=== PATIENT | female | born 1945 | race Caucasian/White ===

== ENCOUNTER 2023-07-14 20:48 | Inpatient (IN) | payer MEDICARE ==
[~2023-07-14] VITALS: Ht 160 cm; Wt 61.8 kg
[2023-07-14 21:20] VITALS: BP 100/72
[2023-07-15 00:29] LABS: BILIRUBIN Negative (Negative); BLOOD Negative (Negative); CLARITY Cloudy (Clear); COLOR Dark Yellow (Yellow); GLUCOSE Negative (Negative); KETONE 1+ (Negative); LEUKO ESTERASE Trace (Negative); NITRITE Negative (Negative); SPECIFIC GRAVITY >= 1.030 (1.001-1.030)
[2023-07-15 00:35] LABS: URINE AMPHETAMINES Negative (1000ng/ml); URINE BARBITURATES Negative (200ng/ml); URINE BENZODIAZEPINES Negative (200ng/ml); URINE CANNABINOIDS (THC) Negative (50ng/ml); URINE COCAINE Negative (300ng/ml); URINE METHADONE Negative (300ng/ml); URINE OPIATES Positive (300ng/ml); URINE PHENCYCLIDINE Negative (25ng/ml)
[2023-07-15 00:59] LABS: BACTERIA 3+
[2023-07-15 01:25] LABS: BASO % 0.7 % (0.0-1.0); EOS # 0.4 10*3/uL (0.0-0.4); EOS % 6.1 % (1.0-4.0); HEMATOCRIT 43.1 % (37.0-47.0); LYMPH # 1.9 10*3/uL (1.3-4.4); LYMPH % 31.2 % (27.0-41.0); MEAN CORPUSCULAR HGB 30.5 pg (27.0-31.0); MEAN CORPUSCULAR HGB CONC 31.8 g/dl (33.0-37.0); MEAN PLATELET VOLUME 9.6 fl (9.6-12.3); MONO # 0.5 10*3/uL (0.1-1.0); MONO % 7.9 % (3.0-9.0); NEUT # 3.2 10*3/uL (2.3-7.9); NEUT % 53.8 % (47.0-73.0); PLATELET COUNT AUTOMATED 158 10*3/uL (130-400); RED BLOOD COUNT 4.49 10*6/uL (4.10-5.10); RED CELL DISTRI WIDTH 13.3 % (0-14.5); WHITE BLOOD COUNT 5.9 10*3/uL (4.8-10.8)
[2023-07-15 01:44] LABS: ALKALINE PHOSPHATASE 73 U/L (46-116); BUN 12 mg/dl (9-23); CHLORIDE 109 mmol/L (98-107); POTASSIUM 3.6 mmol/L (3.4-5.1); SGPT/ALT 8 U/L (5-49); TOTAL PROTEIN 7.1 gm/dL (6.0-8.0)
[2023-07-15 01:45] LABS: ETHYL ALCOHOL < 3.0 mg/dl (<3)
[2023-07-15 03:30] VITALS: BP 138/77
[2023-07-15] MEDS ORDERED: BISACODYL10 MG R (03:59)
[2023-07-15] MEDS ORDERED: HYDROCODONE-AC1 EAC1 PO (04:00)
[2023-07-15] MEDS ORDERED: KLONOPIN0.5 MG PO (04:01)
[2023-07-15] MEDS ORDERED: MELATONIN3 MG PO (04:02)
[2023-07-15] MEDS ORDERED: ATIVAN0.5 MG PO (04:02)
[2023-07-15] MEDS ORDERED: MILK OF MA400 MG/53 PO (04:03)
[2023-07-15] MEDS ORDERED: EXELON1 EAC1 T (04:05)
[2023-07-15] MEDS ORDERED: NUED1CAP PO (04:05)
[2023-07-15] MEDS ORDERED: TRIDERM28.4 GM T (04:08)
[2023-07-15] MEDS ORDERED: ACETAMINOPHEN325 M2 PO (04:15)
[2023-07-15] MEDS ORDERED: REXULTI1 MG PO (04:16)
[2023-07-15] MEDS ORDERED: NAMENDA-5 PO (04:16)
[2023-07-15] MEDS ORDERED: ATIVAN1 MG PO (04:17)
[2023-07-15] MEDS ORDERED: STERILE WATER 110 ML IM (04:18)
[2023-07-15] MEDS ORDERED: GEODON20 MG/1 ML IM (04:18)
[2023-07-15] MEDS ORDERED: EXELON1 EAC2 TD (04:21)
[2023-07-15] MEDS ORDERED: VITAMIN D31250 MC1 PO (04:27)
[2023-07-15] MEDS ORDERED: VITAMIN D325 MCG PO (04:29)
[2023-07-15 07:45] VITALS: BP 125/60
[2023-07-15 08:27] LABS: VITAMIN D, 25-HYDROXY 80.6 ng/mL (30-100)
[2023-07-15 20:00] VITALS: BP 101/73
[2023-07-16 07:56] VITALS: BP 116/58
[2023-07-16 20:00] VITALS: BP 110/65
[2023-07-17 07:36] VITALS: BP 122/80
[2023-07-17 19:03] VITALS: BP 95/58
[2023-07-18 07:25] VITALS: BP 112/68
[2023-07-18 20:00] VITALS: BP 116/78
[2023-07-19 07:30] VITALS: BP 112/62
[2023-07-19 20:00] VITALS: BP 109/68
[2023-07-20 07:33] VITALS: BP 113/52
[2023-07-20 20:00] VITALS: BP 116/64
[2023-07-21 07:42] VITALS: BP 120/76
[2023-07-21 20:00] VITALS: BP 123/73
[2023-07-22 08:00] VITALS: BP 113/67
[2023-07-22 20:00] VITALS: BP 116/73
[2023-07-23 08:53] VITALS: BP 110/84
[2023-07-23 20:00] VITALS: BP 128/76
[2023-07-24 19:50] VITALS: BP 118/68
[2023-07-25 08:34] VITALS: BP 109/82
[2023-07-25 20:00] VITALS: BP 138/68
[2023-07-26 07:32] VITALS: BP 112/80
[2023-07-26 20:00] VITALS: BP 112/84
[2023-07-27 07:37] VITALS: BP 116/78
[2023-07-27 20:00] VITALS: BP 110/62
[2023-07-28 08:43] VITALS: BP 118/48
[2023-07-28 21:30] VITALS: BP 100/60
[2023-07-29 07:42] VITALS: BP 101/46
[2023-07-29 20:00] VITALS: BP 109/73
[2023-07-30 07:57] VITALS: BP 112/57
[2023-07-30 20:00] VITALS: BP 121/50
[2023-07-31 07:53] VITALS: BP 110/76
[2023-07-31 19:14] VITALS: BP 122/70
[2023-08-01 07:31] VITALS: BP 117/60
[2023-08-01 20:00] VITALS: BP 122/74
[2023-08-02 07:53] VITALS: BP 84/44
[2023-08-02] MEDS ORDERED: RIVASTIGMINE1 EAC2 T (09:35)
[2023-08-02] MEDS ORDERED: REXULTI2 MG PO (09:35)
[2023-08-02] MEDS ORDERED: MEMANTINE HCL10 MG PO (09:35)
[2023-08-02] MEDS ORDERED: MIRTAZAPINE15 M2 PO (09:35)
[2023-08-02] MEDS ORDERED: NEUDEXT PO (09:35)
[2023-08-02] MEDS ORDERED: HYDROXYZINE HCL25 MG PO ×2 (09:35)
== END 2023-08-02 14:32 | DRG 883 ==
LOC: ED 20:48 → 3N 07-15 02:05
PROVIDERS: Nurse Practitioner; ADMIT Psychiatry & Neurology Psychiatry; ATTEND Psychiatry & Neurology Psychiatry
PROC: GZHZZZZ Group Psychotherapy (ICD-10-PCS; principal; 2023-07-30)
PROC: GZ51ZZZ Individual Psychotherapy, Behavioral (ICD-10-PCS; 2023-07-30)
DX: F63.81 Intermittent explosive disorder (principal); E44.0 Moderate protein-calorie malnutrition; F33.2 Major depressive disorder, recurrent severe without psychotic features; F23 Brief psychotic disorder; F41.9 Anxiety disorder, unspecified; E87.8 Other disorders of electrolyte and fluid balance, not elsewhere classified; R00.0 Tachycardia, unspecified; R13.19 Other dysphagia; F48.2 Pseudobulbar affect; E78.5 Hyperlipidemia, unspecified; G30.9 Alzheimer's disease, unspecified; F02.80 Dementia in other diseases classified elsewhere, unspecified severity, without behavioral disturbance, psychotic disturbance, mood disturbance, and anxiety; E55.9 Vitamin D deficiency, unspecified; M85.89 Other specified disorders of bone density and structure, multiple sites; Z91.040 Latex allergy status; Z91.013 Allergy to seafood; Z88.8 Allergy status to other drugs, medicaments and biological substances; Z68.24 Body mass index [BMI] 24.0-24.9, adult